=== PATIENT | female | born 1955 | race Caucasian/White ===

== ENCOUNTER 2018-06-12 06:46 | Emergency (ER) | payer SELFPAY ==
[~2018-06-12] VITALS: Ht 160 cm; Wt 81.8 kg
[2018-06-12] MEDS ORDERED: HYDR25TA PO (07:21)
[2018-06-12] MEDS ORDERED: LISI-662 PO (07:21)
[2018-06-12 09:13] VITALS: BP 124/73
== END 2018-06-12 09:23 | disposition home or self-care (01) ==
LOC: EMS 06:47
DX: F10.20 Alcohol dependence, uncomplicated (principal); F12.90 Cannabis use, unspecified, uncomplicated; F14.90 Cocaine use, unspecified, uncomplicated; Z76.0 Encounter for issue of repeat prescription; Z90.710 Acquired absence of both cervix and uterus